=== PATIENT | female | born 1970 | race African-American/Black ===

== ENCOUNTER 2018-05-31 22:25 | Emergency (ER) | payer OTHER ==
[~2018-05-31] VITALS: Ht 170.2 cm; Wt 110.4 kg
[2018-05-31] MEDS ORDERED: ALBU18HF INH (22:41)
[2018-05-31 22:59] LABS: BASOPHILS # (AUTO) 0.03 x10^3/uL (0-0.1); BASOPHILS % (AUTO) 1 % (0-1); EOSINOPHILS # (AUTO) 0.16 x10^3/uL (0-0.4); EOSINOPHILS % (AUTO) 3 % (1-7); LYMPHOCYTES # (AUTO) 2.01 x10^3/uL (1-3.4); LYMPHOCYTES % (AUTO) 34 % (22-44); MD NO; MEAN CORPUSCULAR HEMOGLOBIN 31.7 pg (27.0-34.8); MEAN CORPUSCULAR HGB CONC 33.5 g/dL (32.4-35.8); MEAN CORPUSCULAR VOLUME 94.7 fL (80-100); MEAN PLATELET VOLUME 7.7 fL (7.4-10.4); MONOCYTES # (AUTO) 0.55 x10^3/uL (0.2-0.8); MONOCYTES % (AUTO) 9 % (2-9); NEUTROPHILS # (AUTO) 3.24 x10^3/uL (1.8-6.8); NEUTROPHILS % (AUTO) 54 % (42-75); PLATELET COUNT 255 x10^3/uL (130-400); RED CELL DISTRIBUTION WIDTH 13.9 % (9.6-15.2)
[2018-05-31 23:44] LABS: HCG UR SG 1.018 (1.003-1.030)
[2018-05-31 23:48] LABS: CULTURE INDICATED? YES; MICROSCOPIC INDICATED
[2018-05-31 23:51] VITALS: BP 134/82
== END 2018-06-01 00:31 | disposition home or self-care (01) ==
LOC: ED 23:14
DX: N93.8 Other specified abnormal uterine and vaginal bleeding (principal); R82.99 Other abnormal findings in urine; Z88.0 Allergy status to penicillin; Z88.5 Allergy status to narcotic agent; Z88.2 Allergy status to sulfonamides
CPT/HCPCS: 36415; 81001; 81025; 85025; 87086; 99284